=== PATIENT | female | born 1970 | race Caucasian/White ===

== ENCOUNTER 2022-06-29 09:47 | Day surgery (SDC) | payer BC ==
[2022-06-25 09:58] VITALS: BMI 47.2
[2022-06-29] MEDS ORDERED: Midazolam HCl 2 mg/2 ml Vial ONE (14:26)
== END 2022-06-29 15:25 | disposition home or self-care (01) ==
LOC: CSHSDC 09:47
PROVIDERS: ATTEND Surgery
PROC: 0DB68ZX Excision of Stomach, Via Natural or Artificial Opening Endoscopic, Diagnostic (ICD-10-PCS; principal; 2022-06-29)
DX: K29.50 Unspecified chronic gastritis without bleeding (principal); K44.9 Diaphragmatic hernia without obstruction or gangrene; K21.9 Gastro-esophageal reflux disease without esophagitis; K31.89 Other diseases of stomach and duodenum; E66.01 Morbid (severe) obesity due to excess calories; I10 Essential (primary) hypertension; G47.33 Obstructive sleep apnea (adult) (pediatric); F32.A Depression, unspecified; E03.9 Hypothyroidism, unspecified; R73.01 Impaired fasting glucose; D50.9 Iron deficiency anemia, unspecified; M15.9 Polyosteoarthritis, unspecified; Z86.16 Personal history of COVID-19; Z79.899 Other long term (current) drug therapy; Z68.43 Body mass index [BMI] 50.0-59.9, adult; Z88.2 Allergy status to sulfonamides; Z91.040 Latex allergy status; Z91.048 Other nonmedicinal substance allergy status
CPT/HCPCS: 88305; 88342; J2250